=== PATIENT | female | born 1955 | race Caucasian/White ===

== ENCOUNTER 2021-01-10 00:58 | Day surgery (SDC) | payer OTHER, SELFPAY ==
[2021-01-03 15:50] VITALS: BMI 30.4
--- NOTE | 2021-01-09 10:10 | WPDANESEPPF ---
Anes - Initial Pre Proc Eval Procedure: Operation Date: 01/10/21 07:30 Proposed Procedures p Bilateral Upper Eyelid Blepharoplasty - Bob Moreno MD Date/Time: 01/09/21 10:10 Surgeon: Bob Moreno MD Pre Op Diagnosis: dermatochalasis Patient Data Age: 65 Gender: F Height: 1.7 m Weight: 88 kg Allergies Allergy/AdvReac Type Severity Reaction Status Date / Time No Known Allergies Allergy Verified 01/10/21 06:21 Home Medications Medication Instructions Recorded Confirmed Type docusate sodium 100 mg capsule 100 mg PO BID #14 cap 01/02/21 01/03/21 Rx hydrocodone 5 mg-acetaminophen 325 1 tablet PO Q6H PRN #15 tablet 01/02/21 01/03/21 Rx mg tablet ondansetron HCl 4 mg tablet 4 mg PO Q6H PRN #30 tablet 01/02/21 01/03/21 Rx rizatriptan 10 mg TRANSLINGUAL PRN PRN 01/03/21 01/03/21 History sertraline 25 mg PO DAILY 01/03/21 01/03/21 History Patient hx anesthesia problems: post op nausea/vomiting Family hx anesthesia problems: none PMFSH Past Medical History Medical History (Updated 01/09/21 @ 10:10 by Mehul Soto DO) Anxiety Breast cancer 2007 Hemochromatosis Sleep apnea Uterine cancer 2014 Surgical History Surgical History History of ankle surgery 2005 History of breast reconstruction Tram. flap 2008 History of hysterectomy 2015 History of mastectomy 2007 Family History Family History Grandparent Family history of malignant neoplasm Mother Family history of malignant neoplasm Social History Social History Smoking status: Never smoker Second hand tobacco smoke exposure: Yes (both parents) Alcohol intake: never Substance use: never Substance use type: does not use Living arrangements: with family Spiritual care concerns: No Anes - Eval Final PreProcedure Day of Procedure 01/09/21 10:10 Patient weight: obese Heart: regular rate and rhythm Lungs: clear to auscultation and normal air movement Airway: Mallampati scale class II Neurological: alert and oriented Last oral intake: >/= 8 hours ASA classification: III Emergent: no Anesthetic plan: proceed Anesthesia type and monitoring: general ETT and standard monitoring Informed Consent: The patient's anesthetic plan and its attendant risks and benefits were discussed with the patient/family/POA. Questions were solicited and answers provided to the satisfaction of the patient/family/POA.
[2021-01-10] VITALS (7 sets, daily range): BP systolic 133–141; BP diastolic 83–92; PULSE 70–100; RESP 14–17; TEMP 36.1–36.4; O2SAT 94–100; BMI 30.2
[2021-01-10] MEDS: LACTATED RINGERS 1,000 ML 30 ML IV CONT ×2 (06:30→08:55)
[2021-01-10] MEDS: ONDANSETRON INJ 4 MG/2 ML VIAL IV PUSH (06:57)
[2021-01-10] MEDS: FAMOTIDINE 20 MG/2 ML VIAL IV PUSH (06:57)
[2021-01-10] MEDS: SCOPOLAMINE 1.5 MG PATCH TRANSDERM (07:01)
--- NOTE | 2021-01-10 07:01 | WPDHPUPDATE1 ---
History and Physical Update Update Date/Time: 01/10/21 07:01 History and Physical has been reviewed, including an updated exam of the patient. There are NO changes in the patient's condition. Risks, benefits, and alternatives have been discussed and questions answered. Patient agrees to proceed with procedure.
[2021-01-10 07:20] LABS: Urine Cotinine NEGATIVE
--- NOTE | 2021-01-10 07:23 | W.PM.PROC2 ---
Procedure Note - Detailed Date of Procedure 01/10/21 Pre-op Diagnosis dermatochalasis Post-op Diagnosis same Procedure Performed Bilateral upper eyelid blepharoplasty Surgeon Bob Moreno MD Anesthesia general Description of Procedure Preoperatively the risks, benefits, alternatives were discussed in extensive detail. I want her to be very realistic about the risks involved as well as expectations. Made sure answered all of her questions to her satisfaction. Consent obtained. She was marked in the preoperative holding area with her verification. We did a pinch test to make sure there is no evidence of lagophthalmos. She was taken to the operating room placed supine on the operating room table. Anesthesia provided by anesthesiology and prepped and draped in a standard sterile fashion. Surgical time-out was taken. 1% lidocaine and 0.25% Marcaine with epinephrine was used anesthetize locally. I excised the skin flap from bilateral upper eyelids. I then opened the medial and middle compartments. I teased out just the redone did adipose tissue which was removed and a verified strict hemostasis. I closed using a running subcuticular 5 0 Prolene. This was held on each end with Steri-Strips and benzoin. She was awoke and taken to the PACU without difficulty. All instrument sponge counts were correct at the end of the case. Estimated Blood Loss 5 Drains No Packing No Pathology none sent Complications No immediate complications Condition stable Disposition PACU
[2021-01-10] MEDS: ceFAZolin 2 GM/D5W 50 ML 2 GM/50 ML BAG IVPB (07:25)
[2021-01-10] MEDS: BUPIVACAINE HCL 0.25% PF 30 ML VIAL INFILTRATE (08:00)
[2021-01-10] MEDS: LIDO 1%/EPINEPHRINE 1:100,000 20 ML VIAL 50 ML INFILTRATE (08:02)
[2021-01-10] MEDS: BALANCED SALT SOLN OPHTH IRRIG 30 ML BTL EACH EYE (08:04)
--- NOTE | 2021-01-10 08:51 | SUR.PHASEI ---
Simple mask removed at 0850.
--- NOTE | 2021-01-10 10:06 | SUR.PHASEII ---
Vitals are stable. Patient is just waiting for ride.
== END 2021-01-10 10:12 | disposition home or self-care (01) ==
PROVIDERS: PCP Internal Medicine; Visit Provider Surgery Plastic and Reconstructive Surgery
PROC: (CPT 15822; principal; 2021-01-10 07:30)
DX: H02.834 Dermatochalasis of left upper eyelid (principal); H02.831 Dermatochalasis of right upper eyelid; F41.9 Anxiety disorder, unspecified; G47.30 Sleep apnea, unspecified; Z85.3 Personal history of malignant neoplasm of breast; Z85.42 Personal history of malignant neoplasm of other parts of uterus; E66.9 Obesity, unspecified; Z68.30 Body mass index [BMI] 30.0-30.9, adult; Z79.899 Other long term (current) drug therapy
CPT/HCPCS: 15822; 80307; A9270; J0690; J2250; J2405; J3010; J7120